=== PATIENT | male | born 1985 | race Caucasian/White ===

== ENCOUNTER 2025-02-09 11:39 | Emergency (ER) | payer MEDICAID ==
[~2025-02-09] VITALS: Ht 167.6 cm; Wt 118.0 kg
[2025-02-09 11:43] VITALS: TEMP 36.9; O2SAT 98
[2025-02-09 13:28] VITALS: TEMP 98.4
[2025-02-09] MEDS: LIDOCAINE 5% PATCH TOP SCH (13:28)
[2025-02-09] MEDS: KETOROLAC 15MG/ML VIAL IM ONE (13:28)
[2025-02-09] MEDS: ACETAMINOPHEN 325MG TABLET PO ONE (13:28)
[2025-02-09 13:41] VITALS: BP 149/80; PULSE 64; RESP 16; O2SAT 99
== END 2025-02-09 13:43 | disposition home or self-care (01) ==
LOC: ER 11:39
DX: M54.50 Low back pain, unspecified (principal); R51.9 Headache, unspecified; V89.2XXA Person injured in unspecified motor-vehicle accident, traffic, initial encounter; Y93.89 Activity, other specified; Y92.89 Other specified places as the place of occurrence of the external cause; Y99.8 Other external cause status
CPT/HCPCS: 99285; 70450; 72125; 96372; J1885